=== PATIENT | male | born 1995 | race Caucasian/White ===

== ENCOUNTER 2017-08-30 17:37 | Emergency (ER) | payer BC ==
[2017-08-30] MEDS ORDERED: Rabies Vaccine (RabAvert)* 2.5 UNITS VIAL IM ONE (19:11)
[2017-08-30] MEDS ORDERED: Rabies Immune Globulin 10 ML* 150 UNIT/ML VIAL IM ONE (19:12)
--- NOTE | 2017-08-30 19:20 | ED ---
Bite Injury/Animal - HPI Summary HPI Summary: 22-year-old male presents with potential rabies exposure 3 days ago. He states that he caught a bat in a room in his house and the bat did not bite him. He states that he went to sleep in a different room and there are holes in the pena allowing the bat to travel into his room without him knowing. He woke up the bat not in the room that it was originally in. The bat was not in his room when he woke up. He has no medical conditions. No allergies to immunizations. Tetanus is up-to-date. No bite on body. - History of Current Complaint Chief Complaint: EDAnimalBite Stated Complaint: EXPOSED TO A BAT Time Seen by Provider: 08/30/17 17:48 Pain Intensity: 0 - Allergies/Home Medications Allergies/Adverse Reactions: Allergies Allergy/AdvReac Type Severity Reaction Status Date / Time Penicillins Allergy Rash Verified 08/30/17 17:44 PMH/Surg Hx/FS Hx/Imm Hx Endocrine/Hematology History: Denies: Hx Anticoagulant Therapy Cardiovascular History: Denies: Hx Hypertension Infectious Disease History: No Infectious Disease History: Denies: Traveled Outside the [place] in Last 30 Days - Family History Known Family History: Negative: Blood Disorder - Social History Alcohol Use: None Substance Use Type: Reports: None Smoking Status (MU): Never Smoked Tobacco Review of Systems Negative: Fever Negative: Chest Pain Negative: Shortness Of Breath Positive: Other - potential rabies exposure All Other Systems Reviewed And Are Negative: Yes Physical Exam Triage Information Reviewed: Yes Vital Signs On Initial Exam: Initial Vitals Temp Pulse Resp BP Pulse Ox 98.4 F 82 16 132/77 100 08/30/17 17:41 08/30/17 17:41 08/30/17 17:41 08/30/17 17:41 08/30/17 17:41 Vital Signs Reviewed: Yes Appearance: Positive: Well-Appearing Skin: Positive: Warm, Dry Head/Face: Positive: Normal Head/Face Inspection Eyes: Positive: Normal, Conjunctiva Clear ENT: Positive: Pharynx normal Respiratory/Lung Sounds: Positive: Clear to Auscultation, Breath Sounds Present Cardiovascular: Positive: Normal, RRR Abdomen Description: Positive: Nontender, Soft Bowel Sounds: Positive: Present Musculoskeletal: Positive: Normal Neurological: Positive: Normal Psychiatric: Positive: Normal Diagnostics - Vital Signs Vital Signs Temp Pulse Resp BP Pulse Ox 08/30/17 17:41 98.4 F 82 16 132/77 100 - Laboratory Lab Statement: Any lab studies that have been ordered have been reviewed, and results considered in the medical decision making process. Bite Injury Course/Dx - Course Course Of Treatment: 22-year-old male presents with potential rabies exposure 3 days ago. He states that he caught a bat in a room in his house and the bat did not bite him. He states that he went to sleep in a different room and there are holes in the pena allowing the bat to travel into his room without him knowing. He woke up the bat not in the room that it was originally in. The bat was not in his room when he woke up. He has no medical conditions. No allergies to immunizations. Tetanus is up-to-date. No bite on body. Normal physical exam. Called health Department said to give rabies vaccine. Rabies given. Told to follow-up with health department. Patient understands agrees with plan. - Diagnoses Differential Diagnosis/HQI/PQRI: Positive: Rabies Exposure, Other - bite Provider Diagnosis: Exposure to bat without known bite Discharge - Sign-Out/Discharge Documenting (check all that apply): Patient Departure - Discharge Plan Condition: Good Disposition: HOME Patient Education Materials: Rabies Vaccine (ED) Referrals: No Primary Care Phys,NOPCP [Primary Care Provider] - Additional Instructions: Follow up with health department Return to ED if develop any new or worsening symptoms - Billing Disposition and Condition Condition: GOOD Disposition: Home
[2017-08-30 20:18] VITALS: BP 138/79
== END 2017-08-30 20:22 | disposition home or self-care (01) ==
LOC: ED 17:37
DX: Z20.3 Contact with and (suspected) exposure to rabies (principal); Z88.0 Allergy status to penicillin
CPT/HCPCS: 90375; 90675; 96372; 99281